=== PATIENT | female | born 1935 ===

== ENCOUNTER → 2021-11-29 14:31 | Outpatient (BNVA) | payer MEDICARE, MEDICAID, SELFPAY | PROVIDERS: PCP Internal Medicine; Visit Provider Internal Medicine | DX: G56.00 Carpal tunnel syndrome, unspecified upper limb (principal) | CPT/HCPCS: 99202 ==

== ENCOUNTER → 2021-12-29 11:09 | Outpatient (BNVA) | payer MEDICARE, MEDICAID, SELFPAY | PROVIDERS: PCP Internal Medicine; Visit Provider Orthopaedic Surgery | DX: G56.03 Carpal tunnel syndrome, bilateral upper limbs (principal) | CPT/HCPCS: 20526; 99202; J1100 ==